=== PATIENT | female | born 1990 | race Caucasian/White ===

== ENCOUNTER 2025-01-22 00:44 | Inpatient (IN) | payer OTHER ==
[~2025-01-22] VITALS: Ht 170.2 cm; Wt 94.0 kg
[2025-01-22] MEDS ORDERED: LISI-893 PO (02:21)
[2025-01-22] MEDS ORDERED: EMPA10TA3 PO (02:21)
[2025-01-22] MEDS ORDERED: FURO40TA6 PO (02:21)
[2025-01-22] MEDS ORDERED: SPIR25TA6 PO (02:21)
[2025-01-22] MEDS ORDERED: APIX5TAB PO (02:21)
[2025-01-22 03:13] LABS: PLATELET COUNT (AUTO) 270 K/uL (150-450); RED BLOOD CELL COUNT(AUTO) 4.96 MIL/uL (4.00-5.20); RED CELL DISTRIBUTION WIDTH 21.0 % (11.5-14.5); WHITE BLOOD COUNT (AUTO) 8.9 K/uL (4.5-11.0)
[2025-01-22 03:23] LABS: CALCIUM, TOTAL 9.2 mg/dL (8.8-10.5); CREATININE 1.06 mg/dL (0.60-1.30); GLOMERULAR FILTR. RATE CALC 59 mL/min (>60); GLUCOSE,RANDOM 99 mg/dL (70-110); SODIUM SERUM 137 mmol/L (136-145); UREA NITROGEN, BLOOD 13 mg/dL (7-18)
[2025-01-22 03:31] LABS: ASPARTATE AMINOTRANSFERASE 35.0 U/L (15-37); CREATINE KINASE, TOTAL ONLY 109.0 U/L (26-192); TOTAL PROTEIN, SERUM 7.4 g/dL (6.4-8.2)
[2025-01-22 03:35] LABS: TROPONIN I-HIGH SENSITIVITY 21 ng/L (<51)
[2025-01-22] MEDS ORDERED: IOHEXOL 350 MG/ML 100 ML VIAL ONE (04:08)
[2025-01-22] MEDS ORDERED: SODIUM CHLORIDE 0.9% 100 ML ONE (04:08)
[2025-01-22 05:16] LABS: APPEARANCE,URINE HAZY (CLEAR); GLUCOSE, URINE (UA) NEGATIVE (NEGATIVE); LEUKOCYTE ESTERASE ,URINE MODERATE (NEGATIVE); NITRATE,URINE NEGATIVE (NEGATIVE); OCCULT BLOOD,URINE NEGATIVE (NEGATIVE); SPECIFIC GRAVITIY, URINE 1.014 (1.003-1.030)
[2025-01-22 05:31] LABS: SQUAMOUS EPITHELIAL CELL,UR Few /LPF (None Seen)
[2025-01-22] MEDS: FUROSEMIDE 20 MG/2 ML VIAL IVP ONE (05:47)
[2025-01-22] MEDS: ASPIRIN 81 MG CHEWABLE TABLET PO SCH (10:36)
[2025-01-22] MEDS: ATORVASTATIN CALCIUM 20 MG TABLET PO SCH (10:36)
[2025-01-22 11:16] LABS: TROPONIN I-HIGH SENSITIVITY 18 ng/L (<51)
[2025-01-22 16:35] LABS: TROPONIN I-HIGH SENSITIVITY 17 ng/L (<51)
[2025-01-22] MEDS: HEPARIN SODIUM,PORCINE 5,000 UNITS/ML VIAL SQ SCH (16:36)
[2025-01-22] MEDS: ACETAMINOPHEN 325 MG TABLET PO PRN (16:36)
[2025-01-22] MEDS ORDERED: INFLUENZA VIRUS VACCINE TVS (6MO+) 2025-26/PF 45 MCG/0.5 ML SYRINGE IM. ONE (17:00)
[2025-01-22 20:16] VITALS: BP 92/49; PULSE 99; RESP 17; TEMP 98.4; O2SAT 98
[2025-01-22] MEDS: SPIRONOLACTONE 25 MG TABLET PO SCH (21:04)
[2025-01-22] MEDS: APIXABAN 5 MG TABLET PO SCH (21:04)
[2025-01-22] MEDS: FUROSEMIDE 20 MG/2 ML VIAL IVP SCH (21:05)
[2025-01-23] VITALS (7 sets, daily range): BP systolic 103–123; BP diastolic 60–99; PULSE 81–103; RESP 17–22; TEMP 97.5–98.1; O2SAT 97–100
[2025-01-23] MEDS ORDERED: TRAZ-186 PO (03:20)
[2025-01-23 03:21] LABS: TROPONIN I-HIGH SENSITIVITY 20 ng/L (<51)
[2025-01-23 03:54] LABS: PH,URINE DRUG SCREEN 6.5 (5.0-8.0)
[2025-01-23 03:59] LABS: ALCOHOL, URINE DRUG SCREEN NEGATIVE (NEGATIVE); AMPHET/METH SCREEN,URINE POSITIVE (NEGATIVE); BARBITURATE SCREEN, URINE NEGATIVE (NEGATIVE); CANNABINOID SCREEN,URINE NEGATIVE (NEGATIVE); COCAINE SCREEN,URINE NEGATIVE (NEGATIVE); METHADONE SCREEN, URINE NEGATIVE (NEGATIVE)
[2025-01-23 06:08] LABS: PLATELET COUNT (AUTO) 274 K/uL (150-450); RED BLOOD CELL COUNT(AUTO) 5.02 MIL/uL (4.00-5.20); RED CELL DISTRIBUTION WIDTH 21.1 % (11.5-14.5); WHITE BLOOD COUNT (AUTO) 7.9 K/uL (4.5-11.0)
[2025-01-23 06:35] LABS: CALCIUM, TOTAL 9.0 mg/dL (8.8-10.5); CREATININE 1.19 mg/dL (0.60-1.30); GLOMERULAR FILTR. RATE CALC 52.0 mL/min (>60); GLUCOSE,RANDOM 83.0 mg/dL (70-110); SODIUM SERUM 137.0 mmol/L (136-145); UREA NITROGEN, BLOOD 18.0 mg/dL (7-18)
[2025-01-23] MEDS: EMPAGLIFLOZIN 10 MG TABLET PO SCH (08:28)
[2025-01-23] MEDS: ONDANSETRON HCL 4 MG/2 ML VIAL IVP PRN (09:01)
[2025-01-23 23:12] LABS: APPEARANCE,URINE HAZY (CLEAR); GLUCOSE, URINE (UA) >=1000 mg/dL (NEGATIVE); LEUKOCYTE ESTERASE ,URINE LARGE (NEGATIVE); NITRATE,URINE NEGATIVE (NEGATIVE); OCCULT BLOOD,URINE LARGE (NEGATIVE); SPECIFIC GRAVITIY, URINE 1.020 (1.003-1.030)
[2025-01-23 23:22] LABS: SQUAMOUS EPITHELIAL CELL,UR Few /LPF (None Seen)
[2025-01-24 00:20] VITALS: BP 100/77; PULSE 86; RESP 18; TEMP 97.3; O2SAT 97
[2025-01-24] MEDS: CefTRIAXone 1 GM/DEXTROSE 50 ML IV ONE (01:18)
[2025-01-24 04:18] VITALS: BP 115/87; PULSE 89; RESP 18; TEMP 97.7; O2SAT 94
[2025-01-24 08:38] VITALS: BP 101/81; PULSE 91; RESP 16; TEMP 97.5; O2SAT 99
[2025-01-24] MEDS: FUROSEMIDE 20 MG/2 ML VIAL IVP SCH (08:58)
[2025-01-24] MEDS: CEPHALEXIN MONOHYDRATE 500 MG CAPSULE PO SCH (08:59)
[2025-01-24] MEDS ORDERED: ATOR40TA28 PO (11:29)
[2025-01-24] MEDS ORDERED: CEPH-558 PO (11:30)
[2025-01-24] MEDS ORDERED: CARV3 PO (11:32)
[2025-01-24] MEDS ORDERED: LISI-892 PO (11:33)
[2025-01-24 12:29] VITALS: BP 107/81; PULSE 83; RESP 17; TEMP 97.7; O2SAT 99
[2025-01-24 16:14] VITALS: BP 103/84; PULSE 80; RESP 17; TEMP 97.7; O2SAT 99
== END 2025-01-24 16:35 | DRG 291 ==
LOC: EMS 00:46 → EDH 07:36 → 5S 15:00
PROVIDERS: ADMIT Internal Medicine; ATTEND Internal Medicine
DX: I11.0 Hypertensive heart disease with heart failure (principal); I50.23 Acute on chronic systolic (congestive) heart failure; K76.6 Portal hypertension; I31.39 Other pericardial effusion (noninflammatory); N30.01 Acute cystitis with hematuria; K74.60 Unspecified cirrhosis of liver; I42.7 Cardiomyopathy due to drug and external agent; Z86.711 Personal history of pulmonary embolism; Z79.01 Long term (current) use of anticoagulants; Z79.899 Other long term (current) drug therapy
CPT/HCPCS: 71045; 71275; 76705; 80048; 80076; 80307; 81001; 82550; 83735; 83880; 84484; 84703; 85025; 85379; 85610; 85730; 87086; 93005; 93306; 96374; 97162; 97166; 97535; 99285; J0696; J1644; J1938; J2405; J7050; 36415-L1; 36415-TC